=== PATIENT | male | born 2000 | race Caucasian/White ===

== ENCOUNTER 2022-04-30 03:40 | Observation (INO) | payer BC ==
[2022-04-30] MEDS ORDERED: cefOXitin 2 GM in Sodium Chloride 0.9% 100 ML IVPB SCH (08:15)
[2022-04-30 09:32] LABS: SARS-CoV-2 NAA Rapid Test Not Detected (NotDetected)
[2022-04-30 10:06] VITALS: BMI 23.5
[2022-04-30] MEDS: Sodium Chloride 0.9% 1,000 ML IV SCH ×2 (10:53→15:31)
[2022-04-30] MEDS ORDERED: SUGAMMADEX SODIUM 200 MG/2 ML VIAL ONE (15:05)
[2022-04-30] MEDS ORDERED: fentaNYL Citrate/PF 100 MCG/2 ML SYRINGE ONE ×2 (15:05)
[2022-04-30] MEDS ORDERED: Bupivacaine 0.25% HCL 30 ML VIAL ONE ×2 (15:08→15:11)
[2022-04-30] MEDS ORDERED: Lidocaine 1% w/Epinephrine 1:100K 20 ML VIAL ONE (15:08)
[2022-04-30] MEDS ORDERED: Sodium Chloride 0.9% 100 ML ONE (15:16)
[2022-04-30] MEDS ORDERED: cefOXitin 2 GM VIAL ONE (15:16)
[2022-04-30] MEDS ORDERED: Lidocaine 1% PF 5 ML VIAL ONE (15:16)
[2022-04-30] MEDS ORDERED: PROPOFOL 200 MG/20 ML VIAL ONE (15:16)
[2022-04-30] MEDS ORDERED: Dexamethasone 20 MG/5 ML VIAL ONE (15:16)
[2022-04-30] MEDS ORDERED: Ondansetron PF 4 MG/2 ML Vial ONE (15:16)
[2022-04-30 18:46] VITALS: BP 123/86; TEMP 98
== END 2022-04-30 18:48 | disposition home or self-care (01) ==
LOC: ERS 03:40 → SJJU 07:15
PROVIDERS: ADMIT Surgery; ATTEND Surgery
PROC: 0DCP8ZZ Extirpation of Matter from Rectum, Via Natural or Artificial Opening Endoscopic (ICD-10-PCS; principal; 2022-04-30)
DX: T18.5XXA Foreign body in anus and rectum, initial encounter (principal); Z20.822 Contact with and (suspected) exposure to COVID-19; X58.XXXA Exposure to other specified factors, initial encounter
CPT/HCPCS: 72192; 74018; G0378; J0694; J1100; J2405; J2704; J3490; J7050; S0020; U0002